=== PATIENT | male | born 1965 | race African-American/Black ===

== ENCOUNTER 2017-08-13 11:21 | Emergency (ER) | payer OTHER ==
[~2017-08-13] VITALS: Ht 180.3 cm; Wt 132.0 kg
[~2017-08-13 11:21] MED LIST: ALLOPURINOL300 MG PO; AMOXICILLIN500 MG OR; ATENOLOL50 MG PO; FLEXERIL PO; LISINOPRIL20 MG PO; LORTAB 5/3255 MG PO; NAPROSYN500 MG PO; OMEPRAZOLE40 MG PO; PRILOSEC20 MG/CAP PO; PRILOSEC40 MG PO; SIMVASTATIN40 MG PO; ULTRAM50 M1 PO; ULTRAM50 MG PO
[2017-08-13] MEDS ORDERED: ATORVASTATIN CA20 MG PO (11:35)
[2017-08-13 12:06] VITALS: BP 123/81
== END 2017-08-13 12:08 | disposition home or self-care (01) | DRG 923 ==
LOC: ED 11:21
DX: Z04.2 Encounter for examination and observation following work accident (principal); I10 Essential (primary) hypertension; E78.5 Hyperlipidemia, unspecified; K21.9 Gastro-esophageal reflux disease without esophagitis; M10.9 Gout, unspecified

== ENCOUNTER 2018-09-06 10:13 | Observation (INO) | payer OTHER ==
[~2018-09-06] VITALS: Ht 180.3 cm; Wt 131.8 kg
[2018-09-06] VITALS (7 sets, daily range): BP systolic 114–137; BP diastolic 66–89
[~2018-09-06 10:13] MED LIST changes: +ATORVASTATIN CA20 MG PO
[2018-09-06 10:45] LABS: HEMATOCRIT 42.2 % (39.0-50.0); HEMOGLOBIN 15.2 g/dl (14.0-18.0); IMMATURE GRANULOCYTES 0.6 % (0.0-5.0); MEAN CELL VOLUME 85.8 fL CALC (80.0-100.0); MEAN CORPUSCULAR HGB 30.9 pG CALC (26.0-32.0); NEUT# 6.87 thou/uL (1.82-7.42); RED BLOOD COUNT 4.92 mill/uL (4.70-6.10)
[2018-09-06 11:06] LABS: ANION GAP 23 (6-22 (CALC)); BUN 29 mg/dL (9-20); BUN/CREATININE RATIO 15 (12-20 (CALC)); CARBON DIOXIDE 17 mmol/l (22-30); CHLORIDE 104 mmol/l (95-108); GFR 35 ML/MIN (>=60 (CALC)); GFR FOR AFR.AMER. 43 ML/MIN (>=60 (CALC)); POTASSIUM 4.1 mmol/l (3.5-5.1); SODIUM 140 mmol/l (137-146)
[2018-09-06 20:52] LABS: URINE BILIRUBIN - DIPSTICK NEGATIVE (NEGATIVE); URINE BLOOD DIPSTICK TRACE-INTACT (NEGATIVE); URINE CLARITY CLEAR; URINE COLOR YELLOW; URINE GLUCOSE - DIPSTICK NEGATIVE (NEGATIVE); URINE KETONE NEGATIVE (NEGATIVE); URINE LEUK ESTERASE NEGATIVE (Negative); URINE NITRITE - DIPSTICK NEGATIVE (Negative); URINE PH 5.5 (4.5-8.0); URINE PROTEIN - DIPSTICK NEGATIVE (NEG-TRACE); URINE UROBILINOGEN - DIPSTICK 0.2 E.U./dL (0.2)
[2018-09-07] VITALS: BP 117/63
[2018-09-07 04:00] VITALS: BP 132/69
[2018-09-07 06:09] LABS: HEMATOCRIT 38.4 % (39.0-50.0); HEMOGLOBIN 13.3 g/dl (14.0-18.0); IMMATURE GRANULOCYTES 0.3 % (0.0-5.0); MEAN CELL VOLUME 87.7 fL CALC (80.0-100.0); MEAN CORPUSCULAR HGB 30.4 pG CALC (26.0-32.0); MEAN CORPUSCULAR HGB CONC 34.6 g/L CALC (32.0-36.0); NEUT# 3.74 thou/uL (1.82-7.42); RED BLOOD COUNT 4.38 mill/uL (4.70-6.10); RED CELL DISTRI WIDTH 13.2 % (11.5-15.5)
[2018-09-07 06:29] LABS: ALBUMIN 3.8 g/dL (3.2-5.0); ALKALINE PHOSPHATASE 63 u/l (38-126); ANION GAP 15 (6-22 (CALC)); BILIRUBIN, TOTAL 0.8 mg/dL (0.0-1.4); BUN 23 mg/dL (9-20); BUN/CREATININE RATIO 21 (12-20 (CALC)); CARBON DIOXIDE 22 mmol/l (22-30); CHLORIDE 103 mmol/l (95-108); CREATININE 1.1 mg/dL (0.7-1.3); GFR > 60 ML/MIN (>=60 (CALC)); GFR FOR AFR.AMER. > 60 ML/MIN (>=60 (CALC)); MAGNESIUM 1.7 mg/dL (1.6-2.3); POTASSIUM 4.1 mmol/l (3.5-5.1); SGOT/AST 26 u/l (17-59); SODIUM 135 mmol/l (137-146); TOTAL PROTEIN 7.1 g/dL (6.3-8.2)
[2018-09-07 07:15] VITALS: BP 108/81
[2018-09-07 08:00] VITALS: BP 127/87
[2018-09-07 12:07] VITALS: BP 140/86
== END 2018-09-07 13:39 | disposition home or self-care (01) | DRG 923 ==
LOC: ED 10:13 → ED-I 12:13 → ED 13:11 → ICU 13:12
PROVIDERS: Family Medicine; ADMIT Internal Medicine Nephrology; ATTEND Internal Medicine Nephrology
DX: T67.5XXA Heat exhaustion, unspecified, initial encounter (principal); M62.82 Rhabdomyolysis; N17.9 Acute kidney failure, unspecified; E86.0 Dehydration; I10 Essential (primary) hypertension; E78.5 Hyperlipidemia, unspecified; M10.9 Gout, unspecified; K21.9 Gastro-esophageal reflux disease without esophagitis; M54.9 Dorsalgia, unspecified; X30.XXXA Exposure to excessive natural heat, initial encounter; Y93.89 Activity, other specified; Y92.89 Other specified places as the place of occurrence of the external cause; Y99.0 Civilian activity done for income or pay
CPT/HCPCS: J1650; Q9967

== ENCOUNTER 2019-06-15 16:09 | Emergency (ER) | payer OTHER ==
[~2019-06-15] VITALS: Ht 180.3 cm; Wt 142.3 kg
[2019-06-15] MEDS ORDERED: ALLOPURINOL300 MG PO (16:32)
[2019-06-15] MEDS ORDERED: LISINOP/HCTZ1 TA2 PO (16:32)
[2019-06-15] MEDS ORDERED: VOLTAREN - GENE75 MG PO (17:27)
[2019-06-15 17:30] VITALS: BP 144/57
== END 2019-06-15 17:30 | disposition home or self-care (01) | DRG 563 ==
LOC: ED 16:09
DX: S39.012A Strain of muscle, fascia and tendon of lower back, initial encounter (principal); M54.16 Radiculopathy, lumbar region; I10 Essential (primary) hypertension; X50.0XXA Overexertion from strenuous movement or load, initial encounter; Y93.39 Activity, other involving climbing, rappelling and jumping off

== ENCOUNTER 2022-04-21 13:00 | Emergency (ER) | payer OTHER ==
[2022-04-21] VITALS (7 sets, daily range): BP systolic 134–160; BP diastolic 82–107
[~2022-04-21] VITALS: Ht 180.3 cm; Wt 143.0 kg
[~2022-04-21 13:00] MED LIST changes: +LISINOP/HCTZ1 TA2 PO; +VOLTAREN - GENE75 MG PO
[2022-04-21 15:35] LABS: HEMATOCRIT 42.5 % (39.0-50.0); HEMOGLOBIN 14.5 g/dl (14.0-18.0); IMMATURE GRANULOCYTES 0.3 % (0.0-5.0); MEAN CORPUSCULAR HGB CONC 34.1 g/dL CAL (32.0-36.0); NEUT# 10.16 thou/uL (1.82-7.42); RED BLOOD COUNT 4.67 mill/uL (4.70-6.10); RED CELL DISTRI WIDTH 13.4 % (11.5-15.5)
[2022-04-21 15:44] LABS: ALBUMIN 4.3 g/dL (3.2-5.0); ALKALINE PHOSPHATASE 80 u/l (38-126); ANION GAP 18 (6-22 (CALC)); BILIRUBIN, TOTAL 1.1 mg/dL (0.0-1.4); BUN 15 mg/dL (9-20); BUN/CREATININE RATIO 11 (12-20 (CALC)); CARBON DIOXIDE 25 mmol/l (22-30); CHLORIDE 100 mmol/l (95-108); CREATININE 1.4 mg/dL (0.7-1.3); GFR FOR AFR.AMER. > 60 ML/MIN (>=60 (CALC)); GFR OTHER RACES 52 ML/MIN (>=60 (CALC)); POTASSIUM 3.5 mmol/l (3.5-5.1); SGOT/AST 25 u/l (17-59); SODIUM 140 mmol/l (137-146)
[2022-04-21 15:46] LABS: TOTAL PROTEIN 9.1 g/dL (6.3-8.2)
[2022-04-21] MEDS ORDERED: OMNI-PAC300 MG PO (17:36)
== END 2022-04-21 17:52 | disposition home or self-care (01) | DRG 603 ==
LOC: ED 13:00
PROVIDERS: Family Medicine
DX: L03.115 Cellulitis of right lower limb (principal); I10 Essential (primary) hypertension; M10.9 Gout, unspecified

== ENCOUNTER 2022-08-26 08:29 | Emergency (ER) | payer OTHER ==
[~2022-08-26] VITALS: Ht 180.3 cm; Wt 131.2 kg
[~2022-08-26 08:29] MED LIST changes: +OMNI-PAC300 MG PO
[2022-08-26 09:13] VITALS: BP 133/90
[2022-08-26] MEDS ORDERED: NAPROXEN500 MG PO (10:14)
[2022-08-26 10:17] VITALS: BP 133/90
== END 2022-08-26 10:25 | disposition home or self-care (01) | DRG 605 ==
LOC: ED 08:29
DX: S30.0XXA Contusion of lower back and pelvis, initial encounter (principal); S40.011A Contusion of right shoulder, initial encounter; I10 Essential (primary) hypertension; V58.5XXA Driver of pick-up truck or van injured in noncollision transport accident in traffic accident, initial encounter

== ENCOUNTER 2023-01-26 06:53 | Day surgery (SDC) | payer OTHER ==
[~2023-01-26] VITALS: Ht 180.3 cm; Wt 142.9 kg
[~2023-01-26 06:53] MED LIST changes: +LOSARTAN POTASS50 MG PO; +NAPROXEN500 MG PO
[2023-01-26 09:59] VITALS: BP 117/80
== END 2023-01-26 10:15 | disposition home or self-care (01) | DRG 951 ==
LOC: ENDO 06:53 → ORM 09:20 → ENDO 10:15 → ORM 11:30
PROVIDERS: ATTEND Internal Medicine Gastroenterology
PROC: 0DBK8ZX Excision of Ascending Colon, Via Natural or Artificial Opening Endoscopic, Diagnostic (ICD-10-PCS; principal; 2023-01-26)
DX: Z12.11 Encounter for screening for malignant neoplasm of colon (principal); D12.2 Benign neoplasm of ascending colon; K57.30 Diverticulosis of large intestine without perforation or abscess without bleeding; K64.8 Other hemorrhoids; Z86.010 Personal history of colon polyps; Z80.0 Family history of malignant neoplasm of digestive organs

== ENCOUNTER 2023-12-21 07:57 | Emergency (ER) | payer OTHER ==
[2023-12-21] VITALS (10 sets, daily range): BP systolic 118–145; BP diastolic 84–105
[~2023-12-21] VITALS: Ht 180.3 cm; Wt 136.4 kg
== END 2023-12-21 11:38 | disposition home or self-care (01) | DRG 552 ==
LOC: ED 07:57
DX: M54.50 Low back pain, unspecified (principal); M25.551 Pain in right hip; I10 Essential (primary) hypertension; E66.9 Obesity, unspecified

== ENCOUNTER 2024-12-22 14:16 | Observation (INO) | payer BC ==
[~2024-12-22] VITALS: Ht 180.3 cm; Wt 138.0 kg
[2024-12-22] VITALS (20 sets, daily range): BP systolic 129–183; BP diastolic 69–145
[~2024-12-22 14:16] MED LIST changes: +METHOCARBAMOL500 MG PO; +TYLENOL500 MG PO
[2024-12-22] MEDS ORDERED: SODIUM CHLORIDE 0.9% 1,000 ML IV ONE ×2 (14:55→15:50)
[2024-12-22] MEDS ORDERED: MORPHINE SULFATE 4 MG/ML VIAL IV ONE (14:55)
[2024-12-22] MEDS ORDERED: ONDANSETRON HCl 4 MG/2 ML SDV IV ONE (14:55)
[2024-12-22 15:02] LABS: BASO% 0.2 % (0-3); EOS% 1.2 % (0-8); HEMATOCRIT 39.5 % (39.0-50.0); HEMOGLOBIN 13.5 g/dl (14.0-18.0); IMMATURE GRANULOCYTES 0.2 % (0.0-5.0); MEAN CELL VOLUME 89.6 fL CALC (80.0-100.0); MEAN CORPUSCULAR HGB 30.6 pG CALC (26.0-32.0); MEAN CORPUSCULAR HGB CONC 34.2 g/dL CAL (32.0-36.0); MONO% 9.2 % (2-13); NEUT# 8.74 thou/uL (1.82-7.42); NEUT% 67.2 % (42-76); RED BLOOD COUNT 4.41 mill/uL (4.70-6.10); RED CELL DISTRI WIDTH 12.8 % (11.5-15.5)
[2024-12-22 15:17] LABS: ALBUMIN 4.4 g/dL (3.2-5.0); ALKALINE PHOSPHATASE 78 u/l (38-126); ANION GAP 14 (6-22 (CALC)); BUN 14 mg/dL (9-20); BUN/CREATININE RATIO 10 (12-20 (CALC)); CARBON DIOXIDE 24 mmol/l (22-30); CHLORIDE 103 mmol/l (95-108); CREATININE 1.5 mg/dL (0.7-1.3); ESTIMATED GFR 54 ML/MIN (>=90 (CALC)); POTASSIUM 3.7 mmol/l (3.5-5.1); SGOT/AST 39 u/l (17-59); SODIUM 138 mmol/l (137-146); TOTAL PROTEIN 8.8 g/dL (6.3-8.2)
[2024-12-22 15:20] LABS: BILIRUBIN, TOTAL 1.6 mg/dL (0.2-1.3)
[2024-12-22 15:34] LABS: URINE BLOOD DIPSTICK Small (NEGATIVE); URINE GLUCOSE - DIPSTICK Negative (NEGATIVE); URINE KETONE Negative (NEGATIVE); URINE LEUK ESTERASE Negative (NEGATIVE); URINE NITRITE - DIPSTICK Negative (Negative); URINE PH 5.5 (4.5-8.0); URINE PROTEIN - DIPSTICK 100 mg/dL (NEG-TRACE); URINE SPECIFIC GRAVITY 1.015
[2024-12-22 15:41] LABS: URINE COLOR Dark yellow
[2024-12-22 15:42] LABS: URINE RBC 0-2 RBC/hpf (0-5)
[2024-12-22 15:43] LABS: URINE SQUAMOUS EPITHELIAL CELL FEW EPI/hpf (0-FEW); URINE WBC 0-2 WBC/hpf (0-5)
[2024-12-22 15:44] LABS: URINE HYALINE CAST FEW lpf (NONE-RARE); URINE MUCUS MODERATE hpf (NONE-FEW)
[2024-12-22 15:45] LABS: URINE BACTERIA FEW hpf
[2024-12-22 16:34] LABS: C-REACTIVE PROTEIN 8.4 mg/dL (0-0.9)
[2024-12-22] MEDS ORDERED: VANCOMYCIN HCL 1 GM in SODIUM CHLORIDE 0.9% 500 ML IV ONE (18:10)
[2024-12-22] MEDS ORDERED: LOSARTAN POTASS25 MG PO (19:01)
[2024-12-22] MEDS ORDERED: ALLOPURINOL100 MG PO (19:01)
[2024-12-22] MEDS ORDERED: ATORVASTATIN CA20 MG PO (19:01)
[2024-12-22] MEDS ORDERED: ALLOPURINOL 100 MG/TAB PO SCH (21:19)
[2024-12-22] MEDS ORDERED: MAGNESIUM HYDROXIDE 30 ML UDC PO PRN (21:20)
[2024-12-22] MEDS ORDERED: SODIUM CHLORIDE 0.9% 1,000 ML IV PRN (21:20)
[2024-12-22] MEDS ORDERED: ACETAMINOPHEN 325 MG/TAB PO PRN (21:20)
[2024-12-23 00:30] VITALS: BP 134/79
[2024-12-23 00:41] VITALS: BP 134/79
[2024-12-23 04:13] VITALS: BP 136/84
[2024-12-23 07:03] LABS: ALBUMIN 3.7 g/dL (3.2-5.0); BILIRUBIN, TOTAL 1.4 mg/dL (0.2-1.3); TOTAL PROTEIN 7.5 g/dL (6.3-8.2)
[2024-12-23 07:04] LABS: BASO% 0.1 % (0-3); HEMATOCRIT 36.2 % (39.0-50.0); HEMOGLOBIN 12.2 g/dl (14.0-18.0); IMMATURE GRANULOCYTES 0.2 % (0.0-5.0); LYMPH% 13.6 % (15-41); MEAN CELL VOLUME 91.4 fL CALC (80.0-100.0); MEAN CORPUSCULAR HGB 30.8 pG CALC (26.0-32.0); MEAN CORPUSCULAR HGB CONC 33.7 g/dL CAL (32.0-36.0); MONO% 6.4 % (2-13); NEUT# 8.35 thou/uL (1.82-7.42); NEUT% 79.7 % (42-76); RED BLOOD COUNT 3.96 mill/uL (4.70-6.10); RED CELL DISTRI WIDTH 12.7 % (11.5-15.5)
[2024-12-23 07:05] LABS: POTASSIUM 5.1 mmol/l (3.5-5.1)
[2024-12-23 07:44] VITALS: BP 130/85
[2024-12-23] MEDS ORDERED: LOSARTAN Potassium 25 MG/TAB PO SCH (09:00)
[2024-12-23 10:34] VITALS: BP 154/90
[2024-12-23] MEDS ORDERED: VANCOMYCIN HCL 1,500 MG in SODIUM CHLORIDE 0.9% 470 ML IV SCH (11:00)
[2024-12-23] MEDS ORDERED: PANTOPRAZOLE SODIUM Sesquihydr 40 MG/TAB PO SCH (11:00)
[2024-12-23] MEDS ORDERED: IBUPROFEN 600 MG/TAB PO SCH (11:00)
[2024-12-23] MEDS ORDERED: DiphenhydrAMINE HCL 50 MG/ML SDV IV SCH (14:00)
[2024-12-23 19:20] VITALS: BP 137/74
[2024-12-23] MEDS ORDERED: ENOXAPARIN SODIUM 40 MG/0.4 ML SYR SC SCH (21:00)
[2024-12-23] MEDS ORDERED: ATORVASTATIN CALCIUM 20 MG/TAB PO SCH (21:00)
[2024-12-24 04:27] VITALS: BP 124/67
[2024-12-24 05:47] LABS: BASO% 0.1 % (0-3); EOS% 0.3 % (0-8); HEMATOCRIT 35.8 % (39.0-50.0); IMMATURE GRANULOCYTES 0.9 % (0.0-5.0); LYMPH% 14.8 % (15-41); MEAN CELL VOLUME 92.3 fL CALC (80.0-100.0); MEAN CORPUSCULAR HGB 30.9 pG CALC (26.0-32.0); MEAN CORPUSCULAR HGB CONC 33.5 g/dL CAL (32.0-36.0); MONO% 6.8 % (2-13); NEUT# 11.16 thou/uL (1.82-7.42); NEUT% 77.1 % (42-76); RED BLOOD COUNT 3.88 mill/uL (4.70-6.10); RED CELL DISTRI WIDTH 12.9 % (11.5-15.5)
[2024-12-24 06:14] LABS: TOTAL PROTEIN 6.6 g/dL (6.3-8.2)
[2024-12-24 06:17] LABS: ALBUMIN 3.2 g/dL (3.2-5.0)
[2024-12-24 06:22] LABS: BILIRUBIN, TOTAL 0.4 mg/dL (0.2-1.3); MAGNESIUM 2.3 mg/dL (1.6-2.3)
[2024-12-24 06:31] LABS: C-REACTIVE PROTEIN 14.9 mg/dL (0-0.9)
[2024-12-24 07:00] VITALS: BP 137/86
[2024-12-24 10:51] VITALS: BP 145/88
[2024-12-24 14:54] VITALS: BP 144/94
[2024-12-24 19:28] VITALS: BP 129/84
[2024-12-24 23:42] VITALS: BP 123/68
[2024-12-25] VITALS (7 sets, daily range): BP systolic 114–154; BP diastolic 63–96
[2024-12-25] MEDS ORDERED: methylPREDNISolone Sod Succ 40 MG/ML SDV IV SCH ×2 (10:34→11:00)
[2024-12-25 10:42] LABS: BASO% 0.4 % (0-3); EOS% 2.2 % (0-8); HEMATOCRIT 35.8 % (39.0-50.0); HEMOGLOBIN 11.8 g/dl (14.0-18.0); IMMATURE GRANULOCYTES 0.2 % (0.0-5.0); LYMPH% 31.7 % (15-41); MEAN CORPUSCULAR HGB 30.6 pG CALC (26.0-32.0); MONO% 11.3 % (2-13); NEUT# 4.39 thou/uL (1.82-7.42); NEUT% 54.2 % (42-76); RED BLOOD COUNT 3.85 mill/uL (4.70-6.10)
[2024-12-25 10:45] LABS: ALBUMIN 3.1 g/dL (3.2-5.0); BILIRUBIN, TOTAL 0.3 mg/dL (0.2-1.3); CREATININE 1.1 mg/dL (0.7-1.3); POTASSIUM 4.1 mmol/l (3.5-5.1); TOTAL PROTEIN 6.5 g/dL (6.3-8.2)
[2024-12-26 06:22] LABS: BASO% 0.2 % (0-3); EOS% 0.3 % (0-8); HEMATOCRIT 35.4 % (39.0-50.0); HEMOGLOBIN 11.9 g/dl (14.0-18.0); IMMATURE GRANULOCYTES 0.9 % (0.0-5.0); LYMPH% 20.7 % (15-41); MEAN CELL VOLUME 91.5 fL CALC (80.0-100.0); MEAN CORPUSCULAR HGB 30.7 pG CALC (26.0-32.0); MEAN CORPUSCULAR HGB CONC 33.6 g/dL CAL (32.0-36.0); MONO% 8.3 % (2-13); NEUT# 7.61 thou/uL (1.82-7.42); NEUT% 69.6 % (42-76); RED BLOOD COUNT 3.87 mill/uL (4.70-6.10); RED CELL DISTRI WIDTH 12.7 % (11.5-15.5)
[2024-12-26 06:57] LABS: ALBUMIN 3.2 g/dL (3.2-5.0); BILIRUBIN, TOTAL 0.3 mg/dL (0.2-1.3); C-REACTIVE PROTEIN 3.9 mg/dL (0-0.9); CREATININE 0.9 mg/dL (0.7-1.3); MAGNESIUM 2.1 mg/dL (1.6-2.3); POTASSIUM 4.1 mmol/l (3.5-5.1); TOTAL PROTEIN 6.4 g/dL (6.3-8.2)
[2024-12-26 07:14] VITALS: BP 133/94
[2024-12-26] MEDS ORDERED: PREDNISONE10 MG PO (10:07)
[2024-12-26] MEDS ORDERED: ALLOPURINOL100 MG PO (10:08)
[2024-12-26 10:18] VITALS: BP 144/85
== END 2024-12-26 12:48 | disposition home or self-care (01) | DRG 547 ==
LOC: ED 14:16 → ED-I 18:15 → ED 18:37 → MS2 18:38
PROVIDERS: Internal Medicine; Nurse Practitioner; Nurse Practitioner Family; ADMIT Internal Medicine; ATTEND Internal Medicine
DX: M06.9 Rheumatoid arthritis, unspecified (principal); I10 Essential (primary) hypertension; E78.5 Hyperlipidemia, unspecified; M10.9 Gout, unspecified; L50.0 Allergic urticaria; T36.8X5A Adverse effect of other systemic antibiotics, initial encounter; Z20.822 Contact with and (suspected) exposure to COVID-19
CPT/HCPCS: G0378; J0696; J1100; J1200; J1650; J3370